=== PATIENT | male | born 1960 | race African-American/Black ===

== ENCOUNTER 2017-02-10 09:29 | Inpatient (IN) ==
[2017-02-10] MEDS ORDERED: FUROSEMIDE 100 MG/10 ML VIAL IV STA (10:15)
[2017-02-10] MEDS ORDERED: FUROSEMIDE 100 MG/10 ML VIAL ONE (10:32)
[2017-02-10 10:46] LABS: Basophils % 0.7 % (0.0-0.8); Eosinophils % 0.2 % (0.00-10.9); Hematocrit 48.3 VOL% (42.0-52.0); Hemoglobin 16.7 GM/DL (14.0-18.0); Immature Granulocytes % 0.2 %; Immature Granulocytes Absolute 0.01 #; Lymphocytes # 1.2 10*3/uL (1.4-4.0); Lymphocytes % 26.4 % (21.2-54.2); Mean Corpuscular HGB Conc 34.6 GM/DL (32-36); Mean Corpuscular Hemoglobin 31 PG (27-34); Mean Corpuscular Volume 88.6 FL (87-102); Mean Platelet Volume 10.3 FL (9.6-12.0); Monocytes # 0.4 10*3/uL (0.11-0.8); Monocytes % 8.1 % (1.7-12.7); Neutrophils % 64.4 % (38.7-73.9); Platelet Count 207 T/CUMM (130-400); Red Blood Count 5.45 MC/CUMM (3.8-5.5); Red Cell Distribution Width 15.9 % (9.3-17.3); White Blood Count 4.6 T/CUMM (4-12)
[2017-02-10 10:55] LABS: INR 1.2; PT Patient Result 12.8 SECS; Partial Thromboplastin Time 26.7 SECS (0-40)
[2017-02-10 11:14] LABS: Albumin 3.1 G/DL (3.4-5.0); Bilirubin,Total 1.7 MG/DL (0.2-1.0); Calcium 8.6 MG/DL (8.5-10.1); Osmolality,Calculated 281.4 MOS/KG (273-304); Total Protein 5.6 G/DL (6.4-8.3); Troponin I Only 0.04 NG/ML (0.00-0.045)
[2017-02-10] MEDS ORDERED: hydrALAZINE 20 MG/1 ML VIAL IV STA (13:09)
[2017-02-10] MEDS ORDERED: hydrALAZINE 20 MG/1 ML VIAL ONE (13:10)
[2017-02-10] MEDS ORDERED: DOCUSATE SODIUM 100 MG CAPSULE PO PRN (13:30)
[2017-02-10] MEDS ORDERED: ONDANSETRON 4 MG/2 ML VIAL IV PRN (13:30)
[2017-02-10] MEDS ORDERED: MAGNESIUM SULF RIDER 4 GM in PREMIX 1 EACH IV PRN (13:30)
[2017-02-10] MEDS ORDERED: MAGNESIUM SULF RIDER 2 GM in PREMIX 1 EACH IV PRN (13:30)
[2017-02-10] MEDS ORDERED: LACTULOSE 20 GM/30 ML UDCUP PO PRN (13:30)
[2017-02-10 15:40] LABS: Troponin I Only 0.035 NG/ML (0.00-0.045)
[2017-02-10] MEDS: SPIRONOLACTONE 25 MG TABLET PO SCH (15:46)
[2017-02-10] MEDS: CARVEDILOL 6.25 MG TABLET PO SCH ×2 (15:46→21:15)
[2017-02-10] MEDS: LISINOPRIL 5 MG TABLET PO SCH (15:47)
[2017-02-10] MEDS: PANTOPRAZOLE 40 MG TABLET PO SCH (15:47)
[2017-02-10] MEDS: FUROSEMIDE 40 MG/4 ML VIAL IV SCH (15:47)
[2017-02-10] MEDS: LEVOFLOXACIN INJ 500 MG in PREMIX 1 EACH IV SCH (15:51)
[2017-02-10] MEDS ORDERED: FUROSEMIDE 40 MG/4 ML VIAL IV SCH (16:00)
[2017-02-10 16:42] LABS: Barbiturates Screen,Urine Negative (Negative); Benzodiazepines Screen,Urine Negative (Negative); Cannabinoid Screen,Urine Negative (Negative); Opiate Screen,Urine Negative (Negative); Phencyclidine Screen,Urine Negative (Negative)
[2017-02-10] MEDS ORDERED: CARVEDILOL 3.125 MG TABLET PO SCH (17:00)
[2017-02-10 19:20] LABS: Troponin I Only 0.047 NG/ML (0.00-0.045)
[2017-02-11 06:08] LABS: Basophils % 0.8 % (0.0-0.8); Eosinophils % 0.8 % (0.00-10.9); Hematocrit 46.8 VOL% (42.0-52.0); Hemoglobin 15.9 GM/DL (14.0-18.0); Immature Granulocytes % 0.2 %; Immature Granulocytes Absolute 0.01 #; Lymphocytes # 1.2 10*3/uL (1.4-4.0); Lymphocytes % 21.8 % (21.2-54.2); Mean Corpuscular Hemoglobin 30 PG (27-34); Mean Corpuscular Volume 88.3 FL (87-102); Mean Platelet Volume 10.1 FL (9.6-12.0); Monocytes # 0.6 10*3/uL (0.11-0.8); Monocytes % 12.1 % (1.7-12.7); Neutrophils # 3.4 10*3/uL (1.4-7.4); Neutrophils % 64.3 % (38.7-73.9); Platelet Count 213 T/CUMM (130-400); Red Cell Distribution Width 15.8 % (9.3-17.3); White Blood Count 5.3 T/CUMM (4-12)
[2017-02-11 06:38] LABS: Calcium 8.6 MG/DL (8.5-10.1); Magnesium 2.2 MG/DL (1.8-2.4); Osmolality,Calculated 283.1 MOS/KG (273-304); Potassium 4.2 MMOL/L (3.5-5.1)
[2017-02-11] MEDS: FUROSEMIDE 40 MG/4 ML VIAL IV SCH ×2 (09:02→16:12)
[2017-02-11] MEDS: ASPIRIN CHEW 81 MG TABLET PO SCH (09:02)
[2017-02-11] MEDS: CARVEDILOL 6.25 MG TABLET PO SCH ×2 (09:02→20:28)
[2017-02-11] MEDS: LISINOPRIL 5 MG TABLET PO SCH (09:02)
[2017-02-11] MEDS: SPIRONOLACTONE 25 MG TABLET PO SCH (09:02)
[2017-02-11] MEDS: PANTOPRAZOLE 40 MG TABLET PO SCH (09:02)
[2017-02-11] MEDS: LEVOFLOXACIN INJ 500 MG in PREMIX 1 EACH IV SCH (14:59)
[2017-02-12 05:50] LABS: Basophils % 0.5 % (0.0-0.8); Eosinophils % 0.7 % (0.00-10.9); Hematocrit 45.3 VOL% (42.0-52.0); Hemoglobin 15.5 GM/DL (14.0-18.0); Immature Granulocytes % 0.4 %; Immature Granulocytes Absolute 0.02 #; Lymphocytes # 1.3 10*3/uL (1.4-4.0); Lymphocytes % 24.2 % (21.2-54.2); Mean Corpuscular HGB Conc 34.2 GM/DL (32-36); Mean Corpuscular Hemoglobin 30 PG (27-34); Mean Corpuscular Volume 87.5 FL (87-102); Mean Platelet Volume 10.3 FL (9.6-12.0); Monocytes # 0.6 10*3/uL (0.11-0.8); Monocytes % 11.1 % (1.7-12.7); Neutrophils # 3.5 10*3/uL (1.4-7.4); Neutrophils % 63.1 % (38.7-73.9); Platelet Count 220 T/CUMM (130-400); Red Blood Count 5.18 MC/CUMM (3.8-5.5); Red Cell Distribution Width 15.5 % (9.3-17.3); White Blood Count 5.5 T/CUMM (4-12)
[2017-02-12 06:17] LABS: Calcium 8.5 MG/DL (8.5-10.1); Osmolality,Calculated 281.3 MOS/KG (273-304); Potassium 3.7 MMOL/L (3.5-5.1)
[2017-02-12 06:18] LABS: Calcium 8.4 MG/DL (8.5-10.1); Magnesium 2.1 MG/DL (1.8-2.4); Osmolality,Calculated 283.1 MOS/KG (273-304); Potassium 3.7 MMOL/L (3.5-5.1)
[2017-02-12 06:21] LABS: Albumin 2.5 G/DL (3.4-5.0); Bilirubin,Direct 0.4 MG/DL (0.0-0.20); Bilirubin,Indirect 0.9 MG/DL (0.0-1.0); Bilirubin,Total 1.3 MG/DL (0.2-1.0); Total Protein 4.9 G/DL (6.4-8.3)
[2017-02-12] MEDS: PANTOPRAZOLE 40 MG TABLET PO SCH (08:46)
[2017-02-12] MEDS: ASPIRIN CHEW 81 MG TABLET PO SCH (08:46)
[2017-02-12] MEDS: FUROSEMIDE 40 MG/4 ML VIAL IV SCH ×2 (08:46→15:53)
[2017-02-12] MEDS: CARVEDILOL 6.25 MG TABLET PO SCH ×2 (08:46→21:40)
[2017-02-12] MEDS: LISINOPRIL 5 MG TABLET PO SCH (08:46)
[2017-02-12] MEDS: SPIRONOLACTONE 25 MG TABLET PO SCH (08:46)
[2017-02-12] MEDS: metroNIDAZOLE INJ 500 MG in PREMIX 1 EACH IV SCH ×3 (11:57→23:29)
[2017-02-12] MEDS: LEVOFLOXACIN INJ 500 MG in PREMIX 1 EACH IV SCH (13:59)
[2017-02-13 04:56] LABS: Basophils % 0.6 % (0.0-0.8); Eosinophils # 0.1 10*3/uL (0.0-0.87); Eosinophils % 1.2 % (0.00-10.9); Hematocrit 43.9 VOL% (42.0-52.0); Hemoglobin 15.1 GM/DL (14.0-18.0); Immature Granulocytes % 0.4 %; Immature Granulocytes Absolute 0.02 #; Lymphocytes # 1.7 10*3/uL (1.4-4.0); Lymphocytes % 34.3 % (21.2-54.2); Mean Corpuscular HGB Conc 34.4 GM/DL (32-36); Mean Corpuscular Hemoglobin 30 PG (27-34); Mean Platelet Volume 10.3 FL (9.6-12.0); Monocytes # 0.6 10*3/uL (0.11-0.8); Monocytes % 11.9 % (1.7-12.7); Neutrophils # 2.6 10*3/uL (1.4-7.4); Neutrophils % 51.6 % (38.7-73.9); Platelet Count 205 T/CUMM (130-400); Red Blood Count 4.99 MC/CUMM (3.8-5.5); Red Cell Distribution Width 15.4 % (9.3-17.3)
[2017-02-13 05:26] LABS: Calcium 8.2 MG/DL (8.5-10.1); Osmolality,Calculated 279.5 MOS/KG (273-304); Potassium 3.7 MMOL/L (3.5-5.1)
[2017-02-13 05:28] LABS: Calcium 8.1 MG/DL (8.5-10.1); Magnesium 2.1 MG/DL (1.8-2.4); Osmolality,Calculated 279.5 MOS/KG (273-304); Potassium 3.8 MMOL/L (3.5-5.1)
[2017-02-13] MEDS: metroNIDAZOLE INJ 500 MG in PREMIX 1 EACH IV SCH ×3 (05:41→18:54)
[2017-02-13] MEDS: SPIRONOLACTONE 25 MG TABLET PO SCH (11:07)
[2017-02-13] MEDS: CARVEDILOL 6.25 MG TABLET PO SCH ×2 (11:07→21:41)
[2017-02-13] MEDS: PANTOPRAZOLE 40 MG TABLET PO SCH (11:07)
[2017-02-13] MEDS: LOSARTAN 25 MG TABLET PO SCH (11:07)
[2017-02-13] MEDS: POTASSIUM CHLORIDE 20 MEQ TABLET PO SCH (11:07)
[2017-02-13] MEDS: ASPIRIN CHEW 81 MG TABLET PO SCH (11:08)
[2017-02-13] MEDS: FUROSEMIDE 40 MG/4 ML VIAL IV SCH ×2 (11:15→18:47)
[2017-02-13] MEDS: LEVOFLOXACIN INJ 500 MG in PREMIX 1 EACH IV SCH (14:57)
[2017-02-14] MEDS: metroNIDAZOLE INJ 500 MG in PREMIX 1 EACH IV SCH ×4 (00:30→19:30)
[2017-02-14 06:23] LABS: Albumin 2.6 G/DL (3.4-5.0); Bilirubin,Direct 0.25 MG/DL (0.0-0.20); Bilirubin,Indirect 0.5 MG/DL (0.0-1.0); Bilirubin,Total 0.7 MG/DL (0.2-1.0); Total Protein 5.1 G/DL (6.4-8.3)
[2017-02-14] MEDS: POTASSIUM CHLORIDE 20 MEQ TABLET PO SCH (08:59)
[2017-02-14] MEDS: LOSARTAN 25 MG TABLET PO SCH (08:59)
[2017-02-14] MEDS: FUROSEMIDE 40 MG/4 ML VIAL IV SCH ×2 (08:59→16:13)
[2017-02-14] MEDS: SPIRONOLACTONE 25 MG TABLET PO SCH (09:00)
[2017-02-14] MEDS: CARVEDILOL 6.25 MG TABLET PO SCH ×2 (09:00→22:32)
[2017-02-14] MEDS: ASPIRIN CHEW 81 MG TABLET PO SCH (09:00)
[2017-02-14] MEDS: PANTOPRAZOLE 40 MG TABLET PO SCH (09:00)
[2017-02-14] MEDS: LEVOFLOXACIN INJ 500 MG in PREMIX 1 EACH IV SCH (14:13)
[2017-02-15] MEDS: metroNIDAZOLE INJ 500 MG in PREMIX 1 EACH IV SCH ×5 (00:40→23:48)
[2017-02-15] MEDS: PANTOPRAZOLE 40 MG TABLET PO SCH (09:28)
[2017-02-15] MEDS: ASPIRIN CHEW 81 MG TABLET PO SCH (09:28)
[2017-02-15] MEDS: POTASSIUM CHLORIDE 20 MEQ TABLET PO SCH (09:28)
[2017-02-15] MEDS: LOSARTAN 25 MG TABLET PO SCH (09:29)
[2017-02-15] MEDS: SPIRONOLACTONE 25 MG TABLET PO SCH (09:29)
[2017-02-15] MEDS: FUROSEMIDE 40 MG/4 ML VIAL IV SCH ×2 (09:29→17:44)
[2017-02-15] MEDS: CARVEDILOL 6.25 MG TABLET PO SCH ×2 (09:29→21:19)
[2017-02-15] MEDS: LEVOFLOXACIN INJ 500 MG in PREMIX 1 EACH IV SCH (14:23)
[2017-02-16 05:39] LABS: Basophils # 0.1 10*3/uL (0.0-0.2); Basophils % 1.1 % (0.0-0.8); Eosinophils # 0.1 10*3/uL (0.0-0.87); Eosinophils % 2.9 % (0.00-10.9); Hematocrit 46.5 VOL% (42.0-52.0); Hemoglobin 15.8 GM/DL (14.0-18.0); Immature Granulocytes % 0.2 %; Immature Granulocytes Absolute 0.01 #; Lymphocytes # 1.6 10*3/uL (1.4-4.0); Lymphocytes % 33.8 % (21.2-54.2); Mean Corpuscular Hemoglobin 30 PG (27-34); Mean Corpuscular Volume 88.6 FL (87-102); Mean Platelet Volume 9.9 FL (9.6-12.0); Monocytes # 0.7 10*3/uL (0.11-0.8); Monocytes % 15.5 % (1.7-12.7); Neutrophils # 2.2 10*3/uL (1.4-7.4); Neutrophils % 46.5 % (38.7-73.9); Platelet Count 235 T/CUMM (130-400); Red Blood Count 5.25 MC/CUMM (3.8-5.5); Red Cell Distribution Width 15.2 % (9.3-17.3); White Blood Count 4.8 T/CUMM (4-12)
[2017-02-16 06:07] LABS: Calcium 8.6 MG/DL (8.5-10.1); Magnesium 2.2 MG/DL (1.8-2.4); Osmolality,Calculated 280.5 MOS/KG (273-304)
[2017-02-16] MEDS: metroNIDAZOLE INJ 500 MG in PREMIX 1 EACH IV SCH ×2 (06:20→12:57)
[2017-02-16] MEDS: PANTOPRAZOLE 40 MG TABLET PO SCH (09:31)
[2017-02-16] MEDS: LOSARTAN 25 MG TABLET PO SCH (09:31)
[2017-02-16] MEDS: CARVEDILOL 6.25 MG TABLET PO SCH ×2 (09:31→20:26)
[2017-02-16] MEDS: FUROSEMIDE 40 MG/4 ML VIAL IV SCH (09:32)
[2017-02-16] MEDS: SPIRONOLACTONE 25 MG TABLET PO SCH (09:32)
[2017-02-16] MEDS: POTASSIUM CHLORIDE 20 MEQ TABLET PO SCH (09:32)
[2017-02-16] MEDS: ASPIRIN CHEW 81 MG TABLET PO SCH (09:32)
[2017-02-16] MEDS ORDERED: MAGNESIUM SULF RIDER 2 GM in PREMIX 1 EACH IV PRN (13:17)
[2017-02-16] MEDS ORDERED: POTASSIUM CHLORIDE RIDER 10 MEQ in PREMIX 1 EACH IV PRN (13:17)
[2017-02-16] MEDS ORDERED: FUROSEMIDE 40 MG/4 ML VIAL IV SCH (13:21)
[2017-02-16] MEDS: LEVOFLOXACIN INJ 500 MG in PREMIX 1 EACH IV SCH (14:25)
[2017-02-16] MEDS ORDERED: ACETAMINOPHEN 325 MG TABLET PO PRN (14:29)
[2017-02-16] MEDS ORDERED: ASPIRIN CHEW 81 MG TABLET PO ONE (14:30)
[2017-02-16] MEDS: LEVOFLOXACIN 500 MG TABLET PO SCH (16:21)
[2017-02-16] MEDS: metroNIDAZOLE 500 MG TABLET PO SCH (20:26)
[2017-02-17 06:15] LABS: Basophils % 0.8 % (0.0-0.8); Eosinophils # 0.1 10*3/uL (0.0-0.87); Eosinophils % 2.4 % (0.00-10.9); Hematocrit 47.6 VOL% (42.0-52.0); Hemoglobin 15.9 GM/DL (14.0-18.0); Immature Granulocytes % 0.2 %; Immature Granulocytes Absolute 0.01 #; Lymphocytes # 1.7 10*3/uL (1.4-4.0); Lymphocytes % 34.2 % (21.2-54.2); Mean Corpuscular HGB Conc 33.4 GM/DL (32-36); Mean Corpuscular Hemoglobin 30 PG (27-34); Mean Corpuscular Volume 88.8 FL (87-102); Mean Platelet Volume 9.8 FL (9.6-12.0); Monocytes # 0.8 10*3/uL (0.11-0.8); Monocytes % 16.6 % (1.7-12.7); Neutrophils # 2.3 10*3/uL (1.4-7.4); Neutrophils % 45.8 % (38.7-73.9); Platelet Count 235 T/CUMM (130-400); Red Blood Count 5.36 MC/CUMM (3.8-5.5); Red Cell Distribution Width 15.1 % (9.3-17.3); White Blood Count 4.9 T/CUMM (4-12)
[2017-02-17 06:50] LABS: Burr Cells Slight; Eosinophils 1 % (0-10); Giant Platelets Few; Hypochromasia 1+; Lymphocytes 31 % (20-55); Ovalocytes Slight; Platelet Estimate Adequate; Segmented Neutrophils 53 % (50-85); Total Cells Counted 100
[2017-02-17 06:54] LABS: Calcium 8.3 MG/DL (8.5-10.1); Magnesium 2.2 MG/DL (1.8-2.4); Osmolality,Calculated 277.7 MOS/KG (273-304); Potassium 4.2 MMOL/L (3.5-5.1)
[2017-02-17] MEDS: ASPIRIN CHEW 81 MG TABLET PO SCH ×2 (07:20→09:42)
[2017-02-17] MEDS: CARVEDILOL 6.25 MG TABLET PO SCH ×3 (07:20→20:43)
[2017-02-17] MEDS: PANTOPRAZOLE 40 MG TABLET PO SCH ×2 (07:20→09:42)
[2017-02-17] MEDS: LOSARTAN 25 MG TABLET PO SCH ×2 (07:26→09:42)
[2017-02-17] MEDS ORDERED: DIAZEPAM 5 MG TABLET PO ONE (07:30)
[2017-02-17] MEDS ORDERED: diphenhydrAMINE CAP 25 MG CAPSULE PO ONE (07:30)
[2017-02-17] MEDS ORDERED: MIDAZOLAM 2 MG/2 ML VIAL ONE (07:46)
[2017-02-17] MEDS ORDERED: LIDOCAINE 1% 20 ML VIAL ONE (07:46)
[2017-02-17] MEDS ORDERED: ENOXAPARIN 60 MG/0.6 ML SYRINGE ONE (07:46)
[2017-02-17] MEDS ORDERED: NITROGLYCERIN DRIP 50 MG/250 ML BOTTLE IV ONE (07:46)
[2017-02-17] MEDS ORDERED: fentaNYL 100 MCG/2 ML VIAL ONE (07:47)
[2017-02-17] MEDS ORDERED: VERAPAMIL 5 MG/2 ML VIAL ONE (07:47)
[2017-02-17] MEDS ORDERED: SODIUM CHLORIDE 0.9% 1,000 ML IV SCH (08:30)
[2017-02-17] MEDS: POTASSIUM CHLORIDE 20 MEQ TABLET PO SCH (10:04)
[2017-02-17] MEDS: metroNIDAZOLE 500 MG TABLET PO SCH ×3 (10:04→20:43)
[2017-02-17] MEDS: SPIRONOLACTONE 25 MG TABLET PO SCH (13:04)
[2017-02-17] MEDS: LEVOFLOXACIN 500 MG TABLET PO SCH (15:42)
[2017-02-18 04:53] LABS: Basophils # 0.1 10*3/uL (0.0-0.2); Basophils % 1.2 % (0.0-0.8); Eosinophils # 0.1 10*3/uL (0.0-0.87); Eosinophils % 2.9 % (0.00-10.9); Hematocrit 47.3 VOL% (42.0-52.0); Hemoglobin 16.1 GM/DL (14.0-18.0); Immature Granulocytes % 0.2 %; Immature Granulocytes Absolute 0.01 #; Lymphocytes # 1.5 10*3/uL (1.4-4.0); Lymphocytes % 36.9 % (21.2-54.2); Mean Corpuscular Hemoglobin 30 PG (27-34); Mean Corpuscular Volume 88.4 FL (87-102); Mean Platelet Volume 9.9 FL (9.6-12.0); Monocytes # 0.8 10*3/uL (0.11-0.8); Monocytes % 18.7 % (1.7-12.7); Neutrophils # 1.7 10*3/uL (1.4-7.4); Neutrophils % 40.1 % (38.7-73.9); Platelet Count 232 T/CUMM (130-400); Red Blood Count 5.35 MC/CUMM (3.8-5.5); Red Cell Distribution Width 15.1 % (9.3-17.3); White Blood Count 4.1 T/CUMM (4-12)
[2017-02-18 05:15] LABS: Calcium 8.6 MG/DL (8.5-10.1); Osmolality,Calculated 274.8 MOS/KG (273-304); Potassium 5.1 MMOL/L (3.5-5.1)
[2017-02-18 06:12] LABS: Band Neutrophils 1 % (0-10); Eosinophils 4 % (0-10); Hypochromasia 2+; Lymphocytes 43 % (20-55); Platelet Estimate Normal; Segmented Neutrophils 33 % (50-85); Total Cells Counted 100
[2017-02-18] MEDS: PANTOPRAZOLE 40 MG TABLET PO SCH (08:38)
[2017-02-18] MEDS: SPIRONOLACTONE 25 MG TABLET PO SCH (08:38)
[2017-02-18] MEDS: ASPIRIN CHEW 81 MG TABLET PO SCH (08:38)
[2017-02-18] MEDS: CARVEDILOL 6.25 MG TABLET PO SCH (08:38)
[2017-02-18] MEDS: LOSARTAN 25 MG TABLET PO SCH (08:38)
[2017-02-18] MEDS: POTASSIUM CHLORIDE 20 MEQ TABLET PO SCH (08:38)
[2017-02-18] MEDS: metroNIDAZOLE 500 MG TABLET PO SCH ×2 (08:38→15:04)
[2017-02-18] MEDS ORDERED: FUROSEMIDE 40 MG TABLET PO SCH (09:00)
[2017-02-18 12:43] VITALS: BP 113/77
[2017-02-18] MEDS: LEVOFLOXACIN 500 MG TABLET PO SCH (15:03)
== END 2017-02-18 17:45 | disposition home or self-care (01) | DRG 286 ==
LOC: N.ED 09:29 → N.EDINP 11:39 → N.TELES 13:48
PROVIDERS: ADMIT Hospitalist; ATTEND Hospitalist
PROC: CLCCHCL (ICD-10-PCS; 2017-02-17 09:45)